=== PATIENT | male | born 1990 | race American Indian/Alaskan Native ===

== ENCOUNTER 2019-11-11 12:30 | Emergency (ER) | payer SELFPAY ==
[2019-11-11 14:47] LABS: Basophils % (Auto) 0.7 % (0.0-1.8); Eosinophils # (Auto) 0.1 K/mm3 (0.0-0.4); Eosinophils % (Auto) 1.6 % (0.0-4.3); Hematocrit 47.4 % (35.5-45.6); Hemoglobin 16.1 gm/dl (11.8-15.2); Lymphocytes # (Auto) 1.3 K/mm3 (1.2-5.4); Lymphocytes % (Auto) 21.8 % (13.4-35.0); Mean Corpuscular HGB Conc 34 % (32-34); Mean Corpuscular Volume 89 fl (84-94); Monocytes # (Auto) 0.5 K/mm3 (0.0-0.8); Monocytes % (Auto) 8.9 % (0.0-7.3); Platelet Count 148 K/mm3 (140-440); Red Blood Count 5.35 M/mm3 (3.65-5.03); Red Cell Distribution Width 13.7 % (13.2-15.2)
[2019-11-11 14:50] LABS: Alanine Aminotransferase 99 units/L (7-56); Albumin 4.3 g/dL (3.9-5); BUN/Creatinine Ratio 13; Blood Urea Nitrogen 12 mg/dL (9-20); Calcium 9.5 mg/dL (8.4-10.2); Hemolysis Index 3
[2019-11-11 14:58] LABS: INR 0.91 (0.87-1.13)
[2019-11-11 14:59] LABS: Partial Thromboplastin Time 28.4 Sec. (24.2-36.6)
--- NOTE | 2019-11-11 16:25 | Vascular Lab Report ---
DUPLEX DOPPLER LOWER EXTREMITY VEINS, BILATERAL INDICATION: Diabetes. Bilateral lower extremity swelling.. TECHNIQUE: Duplex doppler imaging was performed through the veins of both lower extremities using venous jenny bette and other maneuvers. COMPARISON: None available. FINDINGS: Right Common femoral vein: Negative. Right Superficial femoral vein: Negative. Right Popliteal vein: Negative. Right Calf veins: Negative. Left Common femoral vein: Negative. Left Superficial femoral vein: Negative. Left Popliteal vein: Negative. Left Calf veins: Negative. Additional findings: None. IMPRESSION: Negative for DVT. Signer Name: Nam Mondragon MD Signed: 11/11/2019 4:20 PM Workstation Name: [id number]
--- NOTE | 2019-11-11 16:26 | Vascular Lab Report ---
Bilateral lower extremity arterial Doppler. HISTORY: Lower extremity swelling. Diabetes. FINDINGS: Duplex Doppler evaluation of the arterial system of both lower extremities was performed wi spectral waveform analysis. Antegrade flow is present bilaterally. Waveforms and velocities are unremarkable. Velocities are seen at the left lower extremity. IMPRESSION: 1. Negative for arterial stenosis. 2. Left lower extremity varicosities. Signer Name: Nam Mondragon MD Signed: 11/11/2019 4:22 PM Workstation Name: [id number]
[2019-11-11] MEDS ORDERED: SODIUM CHLORIDE 0.9% 1000 ML 1,000 ML IV ONE (20:30)
[2019-11-11 20:52] VITALS: BP 136/84
--- NOTE | 2019-11-11 20:57 | Emergency Department Report ---
ED General Adult HPI - General Chief complaint: Extremity Problem,Nontraumatic Stated complaint: LFT LEG BLEEDING Time Seen by Provider: 11/11/19 19:51 Source: patient, EMS Mode of arrival: Wheelchair Limitations: No Limitations - Related Data Previous Rx's Medication Instructions Recorded Last Taken Type Compress.stocking,Knee,Reg,Lrg 1 each MC DAILY #1 each 11/11/19 Unknown Rx [Relief Knee Close Toe] Compress.stocking,Knee,Reg,Lrg 1 each MC DAILY #1 each 11/11/19 Unknown Rx [Relief Knee Open Toe] amLODIPine 10 mg PO DAILY #20 tab 11/11/19 Unknown Rx Allergies Allergy/AdvReac Type Severity Reaction Status Date / Time No Known Allergies Allergy Unverified 11/11/19 12:48 ED Review of Systems ROS: Stated complaint: LFT LEG BLEEDING Other details as noted in HPI ED Past Medical Hx - Past Medical History Previous Medical History?: Yes Hx Hypertension: Yes Hx Diabetes: Yes - Surgical History Past Surgical History?: No - Social History Smoking Status: Current Every Day Smoker Substance Use Type: Alcohol - Medications Home Medications: Home Medications Medication Instructions Recorded Confirmed Last Taken Type Compress.stocking,Knee,Reg,Lrg 1 each MC DAILY #1 each 11/11/19 Unknown Rx [Relief Knee Close Toe] Compress.stocking,Knee,Reg,Lrg 1 each MC DAILY #1 each 11/11/19 Unknown Rx [Relief Knee Open Toe] amLODIPine 10 mg PO DAILY #20 tab 11/11/19 Unknown Rx ED Physical Exam - General Limitations: No Limitations ED Course Vital Signs 11/11/19 12:42 Temperature 98.7 F Pulse Rate 87 Respiratory 14 Rate Blood Pressure 159/83 O2 Sat by Pulse 93 Oximetry ED Medical Decision Making - Lab Data Result diagrams: 11/11/19 14:16 11/11/19 14:16 Lab Results 11/11/19 11/11/19 11/11/19 Range/Units 14:16 14:16 14:16 WBC 5.8 (4.5-11.0) K/mm3 RBC 5.35 H (3.65-5.03) M/mm3 Hgb 16.1 H (11.8-15.2) gm/dl Hct 47.4 H (35.5-45.6) % MCV 89 (84-94) fl MCH 30 (28-32) pg MCHC 34 (32-34) % RDW 13.7 (13.2-15.2) % Plt Count 148 (140-440) K/mm3 Lymph % (Auto) 21.8 (13.4-35.0) % [place] % (Auto) 8.9 H (0.0-7.3) % Eos % (Auto) 1.6 (0.0-4.3) % Baso % (Auto) 0.7 (0.0-1.8) % Lymph # 1.3 (1.2-5.4) K/mm3 [place] # 0.5 (0.0-0.8) K/mm3 Eos # 0.1 (0.0-0.4) K/mm3 Baso # 0.0 (0.0-0.1) K/mm3 Seg Neutrophils % 67.0 (40.0-70.0) % Seg Neutrophils # 3.9 (1.8-7.7) K/mm3 PT 12.4 (12.2-14.9) Sec. INR 0.91 (0.87-1.13) APTT 28.4 (24.2-36.6) Sec. Sodium 138 (137-145) mmol/L Potassium 3.9 (3.6-5.0) mmol/L Chloride 101.4 (98-107) mmol/L Carbon Dioxide 25 (22-30) mmol/L Anion Gap 16 mmol/L BUN 12 (9-20) mg/dL Creatinine 0.9 (0.8-1.5) mg/dL Estimated GFR > 60 ml/min BUN/Creatinine Ratio 13 % Glucose 177 H (75-100) mg/dL Calcium 9.5 (8.4-10.2) mg/dL Total Bilirubin 0.60 (0.1-1.2) mg/dL AST 54 H (5-40) units/L ALT 99 H (7-56) units/L Alkaline Phosphatase 96 (35-129) units/L Total Creatine Kinase 1137 H (55-170) units/L Total Protein 7.5 (6.3-8.2) g/dL Albumin 4.3 (3.9-5) g/dL Albumin/Globulin Ratio 1.3 % - Radiology Data Print Report Referring Physician:CHEPE BRIDGESPatient Name:KEVIUS C MEALINGPatient ID:[id number] of :[id number]:MaleAccession:[id number] Date:[id number] Status:Finalized Findings [facility] [address] [place] [address] Vascular Lab Report Signed Patient: MARY GALVIN MR#: [id number] : 1990 Acct:[id number] Age/Sex: 29 / M ADM Date: 11/11/19 Loc: ED Attending Dr: Ordering Physician: CHEPE BRIDGES MD Date of Service: 11/11/19 Procedure(s): VL venous duplex LE BILAT Accession Number(s): [id number] cc: CHEPE BRIDGES MD DUPLEX DOPPLER LOWER EXTREMITY VEINS, BILATERAL INDICATION: Diabetes. Bilateral lower extremity swelling.. TECHNIQUE: Duplex doppler imaging was performed through the veins of both lower extremities using venous compression and other maneuvers. COMPARISON: None available. FINDINGS: Right Common femoral vein: Negative. Right Superficial femoral vein: Negative. Right Popliteal vein: Negative. Right Calf veins: Negative. Left Common femoral vein: Negative. Left Superficial femoral vein: Negative. Left Popliteal vein: Negative. Left Calf veins: Negative. Additional findings: None. IMPRESSION: Negative for DVT. Signer Name: Nam Mondragon MD Signed: 11/11/2019 4:20 PM Workstation Name: [id number] Transcribed By: ES Dictated By: Nam Mondragon MD Electronically Authenticated By: Nam Mondragon MD Signed Date/Time: 11/11/19 162 DD/ 1619 TD/TT: - Medical Decision Making 29-year-old obese -[place] male with medical history of hypertension and diabetes not on insulin dependent also has a history of lower extremity edema with venous insufficiency reports having some bleeding from 1 of the veins in his legs which he was unable to control earlier today so presents emerge department for treatment. He reports no pain reports no fever chills or sweats no numbness or tingling no rash no burning sensation Critical care attestation.: If time is entered above; I have spent that time in minutes in the direct care of this critically ill patient, excluding procedure time. ED Disposition Clinical Impression: Elevated CK, Bleeding from varicose veins of left lower extremity Disposition: DC-01 TO HOME OR SELFCARE Is pt being admited?: No Does the pt Need Aspirin: No Condition: Stable Instructions: Rhabdomyolysis (ED), Varicose Veins (ED) Additional Instructions: Please obtain a Mikal stockings which is a compression device for the lower extremities 15 to 20 mg of mercury. Also take your blood pressure medication as we discussed and follow-up with PCP Prescriptions: amLODIPine 10 mg PO DAILY #20 tab Compress.stocking,Knee,Reg,Lrg [Relief Knee Close Toe] 1 each MC DAILY #1 each Compress.stocking,Knee,Reg,Lrg [Relief Knee Open Toe] 1 each MC DAILY #1 each Referrals: ALEJANDRO VILLAGOMEZ MD [Primary Care Provider] - 3-5 Days
== END 2019-11-11 22:02 | disposition home or self-care (01) ==
LOC: ED 12:30
DX: R74.8 Abnormal levels of other serum enzymes (principal); I83.892 Varicose veins of left lower extremity with other complications; I10 Essential (primary) hypertension; E11.9 Type 2 diabetes mellitus without complications; F17.200 Nicotine dependence, unspecified, uncomplicated; Z79.899 Other long term (current) drug therapy
CPT/HCPCS: 36415; 80053; 82550; 82962; 85025; 85610; 85730; 93925; 93970; 99284; J7030

== ENCOUNTER 2019-12-11 08:47 | Emergency (ER) | payer SELFPAY ==
[2019-12-11 08:56] VITALS: BP 144/89
--- NOTE | 2019-12-11 10:40 | Emergency Department Report ---
Suture/Staple Removal - [facility] Chief Complaint: Laceration/Recheck/Suture Stated Complaint: LT LEG SWOLLEN Time Seen by Provider: 12/11/19 10:35 When Sutures or Jacob Placed: >14 Days Ago Wound Location: left leg ED Review of Systems ROS: Stated complaint: LT LEG SWOLLEN Other details as noted in HPI Constitutional: denies: chills, fever Eyes: denies: eye pain, eye discharge, vision change ENT: denies: ear pain, throat pain Respiratory: denies: cough, shortness of breath, wheezing Cardiovascular: denies: chest pain, palpitations Endocrine: no symptoms reported Gastrointestinal: denies: abdominal pain, nausea, diarrhea Genitourinary: denies: urgency, dysuria Musculoskeletal: denies: back pain, joint swelling, arthralgia Skin: denies: rash, lesions Neurological: denies: headache, weakness, paresthesias Psychiatric: denies: anxiety, depression Hematological/Lymphatic: denies: easy bleeding, easy bruising ED Past Medical Hx - Past Medical History Previous Medical History?: Yes Hx Hypertension: Yes Hx Diabetes: Yes - Social History Smoking Status: Current Every Day Smoker Substance Use Type: None - Medications Home Medications: Home Medications Medication Instructions Recorded Confirmed Last Taken Type Compress.stocking,Knee,Reg,Lrg 1 each MC DAILY #1 each 11/11/19 Unknown Rx [Relief Knee Close Toe] Compress.stocking,Knee,Reg,Lrg 1 each MC DAILY #1 each 11/11/19 Unknown Rx [Relief Knee Open Toe] amLODIPine 10 mg PO DAILY #20 tab 11/11/19 Unknown Rx Suture Removal Exam - Exam General: Vital signs noted. No distress. Alert and acting appropriately. Wound: No Pathologic Erythema, No Tenderness, No Drainage, No Pus, No Wound Dehiscence Other Systems: All other systems reviewed and are unremarkable. ED Course Vital Signs 12/11/19 08:52 Temperature 98.1 F Pulse Rate 74 Respiratory 22 Rate Blood Pressure 144/89 O2 Sat by Pulse 96 Oximetry - Reevaluation(s) Reevaluation #1: 12/11/19 10:37 Patient is speaking in full sentences with no signs of distress noted. ED Recheck MDM - Medical Decision Making Total of 1 suture has been removed. PAtient tolerated well. No bleeding noted. Well healing. Patient was instructed to Follow-up with a primary care doctor in 3-5 days or if symptoms worsen and continue return to emergency room as soon as possible. At time of discharge, the patient does not seem toxic or ill in appearance. No acute signs of distress noted. Patient agrees to discharge treatment plan of care. No further questions noted by the patient. Critical care attestation.: If time is entered above; I have spent that time in minutes in the direct care of this critically ill patient, excluding procedure time. ED Disposition Clinical Impression: Encounter for removal of sutures Disposition: DC- TO HOME OR SELFCARE Is pt being admited?: No Does the pt Need Aspirin: No Condition: Stable Instructions: Suture Removal (ED) Additional Instructions: Follow-up with a primary care doctor in 3-5 days or if symptoms worsen and continue return to emergency room as soon as possible. Referrals: PRIMARY CAREMD [Primary Care Provider] - 3-5 Days GUILLE KAN MD [Staff Physician] - 3-5 Days Forms: Work/School Release Form(ED)
== END 2019-12-11 10:56 | disposition home or self-care (01) ==
LOC: ED 08:47
DX: M79.89 Other specified soft tissue disorders (principal); I10 Essential (primary) hypertension; E11.9 Type 2 diabetes mellitus without complications; F17.200 Nicotine dependence, unspecified, uncomplicated; Z79.899 Other long term (current) drug therapy; Z48.02 Encounter for removal of sutures
CPT/HCPCS: 99281

== ENCOUNTER 2021-01-09 09:45 | Emergency (ER) | payer SELFPAY ==
[2021-01-09 10:01] VITALS: BP 143/94
[2021-01-09] MEDS ORDERED: TETANUS,DIPH,PERTUSS(ACELL) VACCINE 0.5 ML SYRINGE IM ONE (10:07)
[2021-01-09] MEDS ORDERED: IBUPROFEN 800 MG TAB PO ONE (10:07)
[2021-01-09] MEDS ORDERED: HYDROcodone/ACETAMINOPHEN 5-325 MG TAB PO ONE (10:07)
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
== END 2021-01-09 11:30 | disposition home or self-care (01) ==
LOC: ED 09:45
DX: T22.20XA Burn of second degree of shoulder and upper limb, except wrist and hand, unspecified site, initial encounter (principal); I10 Essential (primary) hypertension; E11.9 Type 2 diabetes mellitus without complications; F17.200 Nicotine dependence, unspecified, uncomplicated; Z79.899 Other long term (current) drug therapy; X58.XXXA Exposure to other specified factors, initial encounter; Y93.89 Activity, other specified; Y92.89 Other specified places as the place of occurrence of the external cause; Y99.8 Other external cause status
CPT/HCPCS: 90471; 90715; 99282

== ENCOUNTER 2021-05-21 10:50 | Emergency (ER) | payer OTHER ==
[2021-05-21] MEDS ORDERED: SODIUM CHLORIDE 0.9% 1000 ML 1,000 ML IV ONE (11:08)
--- NOTE | 2021-05-21 11:13 | Emergency Department Report ---
HPI - General Chief Complaint: Hyperglycemia Time Seen by Provider: 05/21/21 10:58 - HPI HPI: Room 19 Patient is a 30-year-old male present with a chief complaint of hyperglycemia. Patient has a history of diabetes and states for several months his blood sugar has been "low" so he has not had to take his insulin. Patient states approximately 2 to 3 days ago he developed polydipsia and a dry mouth which prompted him to get his blood sugar checked. Patient states his blood sugar was reading high for the past 2 to 3 days he has been managing it with subcu insulin. Patient comes to the ED for evaluation of his hyperglycemia. Patient denies history of fever, dysuria or hematuria. Patient states he has had bilateral back pain for the past 2 to 3 days. When asked how he is feeling currently the patient replies "pretty good." ED Past Medical Hx - Past Medical History Previous Medical History?: Yes Hx Hypertension: Yes Hx Diabetes: Yes - Surgical History Past Surgical History?: No - Family History Family history: no significant - Social History Smoking Status: Current Every Day Smoker (1 pack/day) Substance Use Type: None (Denies illicit drug use), Alcohol (Occasional) - Medications Home Medications: Home Medications Medication Instructions Recorded Confirmed Last Taken Type Compress.stocking,Knee,Reg,Lrg 1 each MC DAILY #1 each 11/11/19 Unknown Rx [Relief Knee Close Toe] Compress.stocking,Knee,Reg,Lrg 1 each MC DAILY #1 each 11/11/19 Unknown Rx [Relief Knee Open Toe] amLODIPine 10 mg PO DAILY #20 tab 11/11/19 Unknown Rx HYDROcodone/APAP 5-325 [[place] 1 each PO Q6HR PRN #10 tablet 01/09/21 Unknown Rx 5/325] Silver Sulfadiazine [Silvadene] 1 applic TP BID 14 Days #1000 g 01/09/21 Unknown Rx ED Review of Systems ROS: Stated complaint: HIGH BLOOD SUGAR Other details as noted in HPI Constitutional: denies: fever Eyes: denies: eye pain ENT: denies: throat pain Respiratory: no symptoms reported Cardiovascular: denies: chest pain Endocrine: increased thirst, other (Dry mouth) Gastrointestinal: denies: abdominal pain Genitourinary: denies: dysuria, hematuria Musculoskeletal: back pain Neurological: denies: headache Physical Exam - Physical Exam Physical Exam: GENERAL: The patient is well-developed well-nourished male lying on stretcher not appearing to be in acute distress. [] HEENT: Normocephalic. Atraumatic. Extraocular motions are intact. NECK: Supple. Trachea midline CHEST/LUNGS: Clear to auscultation. There is no respiratory distress noted. HEART/CARDIOVASCULAR: Regular. There is no tachycardia. There is no gallop rub or murmur. ABDOMEN: Abdomen is soft, nontender. Patient has normal bowel sounds. There is no abdominal distention. SKIN: There is no rash. There is no edema. There is no diaphoresis. NEURO: The patient is awake, alert, and oriented. The patient is cooperative. The patient has no focal neurologic deficits. The patient has normal speech. GCS 15 MUSCULOSKELETAL: There is no evidence of acute injury. ED Medical Decision Making - Lab Data Result diagrams: 05/21/21 11:12 05/21/21 11:12 Laboratory Tests 05/21/21 05/21/21 05/21/21 10:54 11:12 11:12 WBC 5.2 RBC 5.68 H Hgb 17.0 H Hct 50.3 H MCV 89 MCH 30 MCHC 34 RDW 12.3 L Plt Count 148 Lymph % (Auto) 30.5 [place] % (Auto) 7.9 H Eos % (Auto) 3.6 Baso % (Auto) 0.6 Lymph # (Auto) 1.6 [place] # (Auto) 0.4 Eos # (Auto) 0.2 Baso # (Auto) 0.0 Seg Neutrophils % 57.4 Seg Neutrophils # 3.0 VBG pH Sodium 137 Potassium 4.2 Chloride 99.3 Carbon Dioxide 27 Anion Gap 15 BUN 15 Creatinine 0.9 Estimated GFR > 60 BUN/Creatinine Ratio 17 Glucose 319 H POC Glucose 320 H Calcium 9.1 Urine Color Urine Turbidity Urine pH Ur Specific [place] Urine Protein Urine Glucose (UA) Urine Ketones Urine Blood Urine Nitrite Urine Bilirubin Urine Urobilinogen Ur Leukocyte Esterase Urine WBC (Auto) Urine RBC (Auto) Hyaline Casts Urine Mucus 05/21/21 05/21/21 05/21/21 11:12 12:05 12:31 WBC RBC Hgb Hct MCV MCH MCHC RDW Plt Count Lymph % (Auto) [place] % (Auto) Eos % (Auto) Baso % (Auto) Lymph # (Auto) [place] # (Auto) Eos # (Auto) Baso # (Auto) Seg Neutrophils % Seg Neutrophils # VBG pH 7.346 Sodium Potassium Chloride Carbon Dioxide Anion Gap BUN Creatinine Estimated GFR BUN/Creatinine Ratio Glucose POC Glucose 268 H Calcium Urine Color Yellow Urine Turbidity Clear Urine pH 6.0 Ur Specific [place] 1.031 H Urine Protein 30 mg/dl Urine Glucose (UA) >=500 Urine Ketones Tr Urine Blood Neg Urine Nitrite Neg Urine Bilirubin Neg Urine Urobilinogen < 2.0 Ur Leukocyte Esterase Neg Urine WBC (Auto) 2.0 Urine RBC (Auto) 1.0 Hyaline Casts 2 Urine Mucus Few 05/21/21 13:11 WBC RBC Hgb Hct MCV MCH MCHC RDW Plt Count Lymph % (Auto) [place] % (Auto) Eos % (Auto) Baso % (Auto) Lymph # (Auto) [place] # (Auto) Eos # (Auto) Baso # (Auto) Seg Neutrophils % Seg Neutrophils # VBG pH Sodium Potassium Chloride Carbon Dioxide Anion Gap BUN Creatinine Estimated GFR BUN/Creatinine Ratio Glucose POC Glucose 291 H Calcium Urine Color Urine Turbidity Urine pH Ur Specific [place] Urine Protein Urine Glucose (UA) Urine Ketones Urine Blood Urine Nitrite Urine Bilirubin Urine Urobilinogen Ur Leukocyte Esterase Urine WBC (Auto) Urine RBC (Auto) Hyaline Casts Urine Mucus - Differential Diagnosis Hyperglycemia, DKA, myalgia, UTI Critical care attestation.: If time is entered above; I have spent that time in minutes in the direct care of this critically ill patient, excluding procedure time. ED Disposition Clinical Impression: Hyperglycemia Disposition: 01 HOME / SELF CARE / HOMELESS Is pt being admited?: No Does the pt Need Aspirin: No Condition: Stable Instructions: Hyperglycemia, [id number], Blood Glucose Monitoring, Adult Additional Instructions: Return to the emergency department should you develop worsening symptoms, inability to tolerate food or liquids, high fever or any other concerns Referrals: PRIMARY MD CHAD [Primary Care Provider] - 3-5 Days [facility] [Provider Group] - 3-5 Days Time of Disposition: 13:59
[2021-05-21 11:45] LABS: BUN/Creatinine Ratio 17; Blood Urea Nitrogen 15 mg/dL (9-20); Calcium 9.1 mg/dL (8.4-10.2); Hemolysis Index 6
[2021-05-21 11:57] LABS: Basophils % (Auto) 0.6 % (0.0-1.8); Eosinophils # (Auto) 0.2 K/mm3 (0.0-0.4); Eosinophils % (Auto) 3.6 % (0.0-4.3); Hematocrit 50.3 % (35.5-45.6); Lymphocytes # (Auto) 1.6 K/mm3 (1.2-5.4); Lymphocytes % (Auto) 30.5 % (13.4-35.0); Mean Corpuscular HGB Conc 34 % (32-34); Mean Corpuscular Volume 89 fl (84-94); Monocytes # (Auto) 0.4 K/mm3 (0.0-0.8); Monocytes % (Auto) 7.9 % (0.0-7.3); Platelet Count 148 K/mm3 (140-440); Red Blood Count 5.68 M/mm3 (3.65-5.03); Red Cell Distribution Width 12.3 % (13.2-15.2)
[2021-05-21] MEDS ORDERED: INSULIN REGULAR, HUMAN 100 UNITS/1 ML IV ONE (12:06)
[2021-05-21 13:55] LABS: Bilirubin,Urine NEG (Negative); Blood,Urine NEG (Negative); Color,Urine Yellow (Yellow); Hyaline Casts,Urine 2 /LPF; Mucus,Urine FEW /HPF; Urobilinogen,Urine < 2.0 mg/dL (<2.0)
[2021-05-21 14:31] VITALS: BP 132/93
== END 2021-05-21 14:32 | disposition home or self-care (01) ==
LOC: ED 10:50
DX: E11.65 Type 2 diabetes mellitus with hyperglycemia (principal); I10 Essential (primary) hypertension; Z86.79 Personal history of other diseases of the circulatory system; F17.200 Nicotine dependence, unspecified, uncomplicated
CPT/HCPCS: 36415; 80048; 81001; 82805; 82962; 85025; 96361; 96374; 99283; Q9967; J1815

== ENCOUNTER 2022-01-06 21:24 | Emergency (ER) | payer OTHER ==
--- NOTE | 2022-01-07 10:04 | Emergency Department Report ---
ED General Adult HPI - General Chief complaint: Sore Throat Stated complaint: KIDNEY PAIN, SORE THROAT PUI?: No Time Seen by Provider: 01/07/22 08:54 Source: patient Mode of arrival: Ambulatory Limitations: No Limitations - History of Present Illness Initial comments: Patient is a 31-year-old male that comes to the ER complaining of a sore throat and kidney pain. He denies dysuria. He denies any discharge. He states that his low back hurts. He denies any trauma or fall. He denies fever or chills. Denies nausea vomiting diarrhea. Denies any abdominal pain. Denies any cough or congestion. -: Gradual, days(s) Consistency: constant Improves with: none Worsens with: none Associated Symptoms: denies other symptoms Treatments Prior to Arrival: none - Related Data Previous Rx's Medication Instructions Recorded Last Taken Type amLODIPine 10 mg PO DAILY #20 tab 11/11/19 Unknown Rx Amoxicillin [Trimox CAP] 500 mg PO BID #20 capsule 01/07/22 Unknown Rx Allergies Allergy/AdvReac Type Severity Reaction Status Date / Time No Known Allergies Allergy Unverified 11/11/19 12:48 ED Review of Systems ROS: Stated complaint: KIDNEY PAIN, SORE THROAT Other details as noted in HPI Comment: All other systems reviewed and negative ED Past Medical Hx - Past Medical History Previous Medical History?: Yes Hx Hypertension: Yes Hx Diabetes: Yes - Surgical History Past Surgical History?: No - Family History Family history: no significant - Social History Substance Use Type: Alcohol - Medications Home Medications: Home Medications Medication Instructions Recorded Confirmed Last Taken Type amLODIPine 10 mg PO DAILY #20 tab 11/11/19 Unknown Rx Amoxicillin [Trimox CAP] 500 mg PO BID #20 capsule 01/07/22 Unknown Rx ED Physical Exam - General Limitations: No Limitations General appearance: alert, in no apparent distress - Head Head exam: Present: atraumatic, normocephalic - Eye Eye exam: Present: normal appearance - ENT ENT exam: Present: mucous membranes moist - Expanded ENT Exam Expanded Teeth exam: Present: normal inspection Throat exam: Positive: tonsillar erythema - Neck Neck exam: Present: normal inspection - Respiratory Respiratory exam: Present: normal lung sounds bilaterally. Absent: respiratory distress - Cardiovascular Cardiovascular Exam: Present: regular rate, normal rhythm. Absent: systolic murmur, diastolic murmur, rubs, gallop - GI/Abdominal GI/Abdominal exam: Present: soft, normal bowel sounds - Rectal Rectal exam: Present: deferred - Extremities Exam Extremities exam: Present: normal inspection - Back Exam Back exam: Present: normal inspection - Neurological Exam Neurological exam: Present: alert, oriented X3 - Psychiatric Psychiatric exam: Present: normal affect, normal mood - Skin Skin exam: Present: warm, dry, intact, normal color. 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 UA noted. Patient medicated for pain. Patient taking p.o. without difficulty. He is ambulatory in no acute distress. Patient being discharged home with discharge plan of care including diet, activity, medications and follow-up. He verbalizes understanding of plan of care. - Differential Diagnosis Rule out UTI, kidney stone Critical care attestation.: If time is entered above; I have spent that time in minutes in the direct care of this critically ill patient, excluding procedure time. ED Disposition Clinical Impression: Pharyngitis Qualifiers: Pharyngitis/tonsillitis etiology: other specified organisms Qualified Code(s): J02.8 - Acute pharyngitis due to other specified organisms Back pain Qualifiers: Back pain location: low back pain Chronicity: unspecified Disposition: 01 HOME / SELF CARE / HOMELESS Is pt being admited?: No Does the pt Need Aspirin: No Condition: Stable Instructions: Pharyngitis, [id number] Additional Instructions: meds as ordered today until gone motrin or tylenol for pain stay well hydrated follow up with pcp next week to be sure you are feeling better referral below diet and activity as tolerated Prescriptions: Amoxicillin [Trimox CAP] 500 mg PO BID #20 capsule Referrals: GUILLE KAN MD [Primary Care Provider] - 3-5 Days Forms: Work/School Release Form(ED) Time of Disposition: 11:21
[2022-01-07] MEDS ORDERED: dexAMETHasone 4 MG/ML VIAL IM ONE (10:49)
[2022-01-07] MEDS ORDERED: IBUPROFEN 800 MG TAB PO ONE (10:49)
[2022-01-07 11:01] LABS: Hematocrit 46.6 % (35.5-45.6); Hemoglobin 15.7 gm/dl (11.8-15.2); Mean Corpuscular HGB Conc 34 % (32-34); Mean Corpuscular Volume 89 fl (84-94); Platelet Count 139 K/mm3 (140-440); Red Blood Count 5.21 M/mm3 (3.65-5.03); Red Cell Distribution Width 13.5 % (13.2-15.2)
[2022-01-07 11:05] LABS: Bilirubin,Urine NEG (Negative); Blood,Urine NEG (Negative); Color,Urine Yellow (Yellow); Mucus,Urine FEW /HPF; Protein,Urine <15 mg/dL mg/dL (Negative); WBC,Urine < 1.0 /HPF (0.0-6.0)
[2022-01-07] MEDS ORDERED: AMOXICILLIN 500 MG CAP PO ONE (11:20)
[2022-01-07 11:53] LABS: Alanine Aminotransferase 47 units/L (7-56); Albumin 4.2 g/dL (3.9-5); BUN/Creatinine Ratio 15; Blood Urea Nitrogen 15 mg/dL (9-20); Calcium 9.5 mg/dL (8.4-10.2); Hemolysis Index 5
[2022-01-07 12:32] VITALS: BP 142/86
[2022-01-07 18:34] LABS: Band Neutrophils # (Manual) 0.2 K/mm3; Basophils % (Manual) 0 % (0.0-1.8); Eosinophils % (Manual) 0 % (0.0-4.3); Total Cells Counted 100
[2022-01-07 18:35] LABS: Platelet Estimate Consistent w Auto; RBC Morphology Normal
== END 2022-01-07 12:31 | disposition home or self-care (01) ==
LOC: ED 21:24
DX: J02.9 Acute pharyngitis, unspecified (principal); M54.50 Low back pain, unspecified; I10 Essential (primary) hypertension; E11.9 Type 2 diabetes mellitus without complications
CPT/HCPCS: 36415; 80053; 81001; 83690; 85007; 85025; 96372; 99283; J1100